=== PATIENT | female | born 1990 ===

== ENCOUNTER 2016-06-07 01:52 | Inpatient (IN) | payer OTHER ==
[~2016-06-07] VITALS: Ht 157.5 cm; Wt 85.3 kg
[2016-06-07 02:44] VITALS: BP 123/81
[2016-06-07 03:23] LABS: ABSOLUTE BASOPHIL COUNT 0 /CUMM (0.0-0.2); ABSOLUTE EOSINOPHIL COUNT 0.3 /CUMM (0.0-0.7); ABSOLUTE GRANULOCYTE CT 11.8 /CUMM (1.4-6.5); ABSOLUTE LYMPH COUNT 2.4 /CUMM (1.2-3.4); ABSOLUTE MONOCYTE COUNT 1.1 /CUMM (0.10-0.60); BASOPHIL % 0.2 % (0.0-2.0); EOSINOPHIL % 2.1 % (0-5); GRANULOCYTE % 75.2 % (42.2-75.2); HEMATOCRIT 36.6 % (37-47); MEAN CORPUSCULAR HGB 21.4 PG (27.0-31.0); MEAN CORPUSCULAR HGB CONC 31.4 G/DL (33.0-37.0); MEAN CORPUSCULAR VOLUME 68.3 FL (81.0-99.0); MEAN PLATELET VOLUME 8.9 FL (7.4-10.4); PLATELET COUNT 124 /CUMM (130-400); RBC DISTRIBUTION WIDTH 16.7 % (11.5-14.5); RED BLOOD CELL CT 5.36 /CUMM (4.20-5.40); WHITE BLOOD CELL COUNT 15.7 /CUMM (4.8-10.8)
--- NOTE | 2016-06-07 04:39 | History & Physical ---
General Information and HPI MD Statement: I have seen and personally examined MADHAVI HYMAN and documented this H&P. Source of Information: patient, family, old records History of Present Illness: The patient is a 26 year old female at [40] weeks and [1] days gestation who presented with a chief complaint of [contractions]. Patient called previously and was told to come to hospital for evaluation. Complaining of contraction Q5- 10 minutes for the past few hours. Denies any LOF or VB. Good FM Of note, patient was a Late transfer of care at ~22wga from [facility]. This IUP has been complicated by diet controlled GDM. Last finger stick was a few days ago and was "normal". 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 Denies all others. Exam & Diagnostic Data Last 24 Hrs of Vital Signs/I&O Vital Signs Date Time Temp Pulse Resp B/P Pulse O2 O2 Flow FiO2 Ox Delivery Rate 06/07 0244 123/81 Intake & Output 06/07 0800 06/07 0000 06/06 1600 Intake Total Output Total Balance Patient 85.275 kg Weight Obstetric Exam Wgt Gained During : 45 Pelvimetry: pending Dilation (cm): 4 Effacement (%): 100 Station: -2 Membranes: intact Fluid: unknown Fundal Height (cm): 40 Multiple Gestation? No Contractions: Q 4 min Infant #1 - FHR Baseline: 135 Category: 1 Estimated Weight: 8lbs Presentation: cephalic per alfredo and vaginal check Patient for Induction? No (pending reassessment) Gillette Score Gillette Score Response Value Cervix Position: mid-position 1 Cervix Consistency: soft 2 Cervix Effacement: >80% 3 Cervix Dilation: 1-2 cm 1 Cervix Station: -2 1 Total 8 Physical Exam: Gen: In obvious discomfort with contractions Heart: RRR S1 and S2 Lungs: CTAB Abd: Gravid and non tender Labs Blood Type & Rh: O+ Antibody Screen: neg Hct/Hgb & Platelets #1: 36.5/11.9/169 Hct/Hgb & Platelets #2: unk Rubella: I VDRL #1: NR VDRL #2: NR HbsAg: NR HIV #1: NR HIV #2 NR 1 Hr P 3 Hr P/169/112 Group B Strep: neg Initial Ultrasound: Late transfer of care at 22 weeks Anatomy Ultrasound: performed on 02/03/17, no report available Genetic Testing: LTOC at 22wga Last 24 Hrs of Labs/Chris: Laboratory Tests 06/07/16 0305: Hemoglobin A1c Pending, CBC w Diff NO MAN DIFF REQ, RBC 5.36, MCV 68.3 L, MCH 21.4 L, RDW 16.7 H, MPV 8.9, Gran % 75.2, Lymphocytes % 15.4 L, Monocytes % 7.1, Eosinophils % 2.1, Basophils % 0.2, Absolute Granulocytes 11.8 H, Absolute Lymphocytes 2.4, Absolute Monocytes 1.1 H, Absolute Eosinophils 0.3, Absolute Basophils 0, PUBS MCHC 31.4 L 06/07/16 0300: Urine Color STRAW, Urine Clarity CLEAR, Urine pH 6.5, Ur Specific [place] 1.010, Urine Protein NEG, Urine Ketones NEG, Urine Nitrite NEG, Urine Bilirubin NEG, Urine Urobilinogen 0.2, Ur Leukocyte Esterase NEG, Ur Microscopic SEDIMENT EXAMINED, Urine RBC RARE, Urine WBC 1-3 H, Ur Epithelial Cells FEW, Urine Bacteria RARE H, Urine Hemoglobin TRACE-INTACT, Urine Glucose NEG Assessment/Plan Assessment/Plan: 26 yo at 40w1d who presents in early labor. Patient was found to be 4 cm in clinic about 1 month prior and presents today with increasing contraction intensity and frequency. However given no effacement in prior notes and 100% today, will plan to admit for labor. Epidural as needed (patient requesting) Will plan for augmentation if no progress made at next check GDM Initial finger stick of 82 Will repeat again in 3 hours and maintain normoglycemic Monitor Q 4hrs if normal Gest Thrombocytopenia 124 on labs today No further treatment at this time. Continue to monitor As Ranked By This Provider Problem List: 1. 2. Gestational diabetes 3. Thrombocytopenia affecting Core Measures/Miscellaneous Venous Thromboembolism VTE Risk Factors: / VTE Contraindications: No Contraindications VTE Diagnosis: No Beta Christine Is Beta Christine a Home Med? No Antibiotics Is Patient on Antibiotics? No Attending MD Review Statement Attending Statement Attending MD Statement: examined this patient, discussed with family, reviewed EMR data (avail), discussed w/nursing
--- NOTE | 2016-06-07 09:34 | PN- Obstetrical ---
Subjective Subjective: Patient complaining of pain with each contraction despite being post epidural placement. Denies any other symptoms at this time. Objective Last 24 Hrs of Vital Signs/I&O see flow sheet (WNL) Physical Exam: FHTs:150/mod juaquin/+accels/occasional early vs variable decelerations. Obstetric Exam Dilation (cm): 6 Effacement (%): 10 Station: -1 Membranes: intact Fluid: clear Multiple Gestation? No Contractions: Q3-4 min #1 - FHR Baseline: 150 Category: 1 Estimated Weight: 8lbs Presentation: cephalic per alfredo and vaginal check Assessment/Plan Assessment/Plan Continue current expectant management. Anticipate vaginal delivery Patient ok to obtain epidural rebolus for pain management Will consider AROM at next check. Attending MD Review Statement Attending Statement Attending MD Statement: examined this patient, discussed with nursing
--- NOTE | 2016-06-07 10:03 | PN- Obstetrical ---
Subjective Subjective: Back pain with contractions. No urge to push yet. abdominal pain with contractions now resolved with rebolus of epidural. Objective Last 24 Hrs of Vital Signs/I&O Vital Signs Date Time Temp Pulse Resp B/P Pulse O2 O2 Flow FiO2 Ox Delivery Rate 0946 119/79 Intake & Output 06/07 1600 06/07 0800 04 0000 Intake Total Output Total Balance Patient 85.275 kg Weight Physical Exam: Somewhat uncomfortable with contractions. FHTs: 145/mod juaquin/+accels/occasional variable decels. Cat 2 and reassuring. Obstetric Exam Dilation (cm): 7 Effacement (%): 100 Station: -1 Membranes: AROM (clear) Fluid: clear Multiple Gestation? No Contractions: Q3-4 min Infant #1 - FHR Baseline: 145 Category: 1 Estimated Weight: 8lbs Presentation: cephalic per alfredo and vaginal check Assessment/Plan Assessment/Plan AROM with clear fluidat this check. Will continue to monitor vitals closely. Consider pitocin if no change at next check.
--- NOTE | 2016-06-07 11:46 | PN- Obstetrical ---
Subjective Subjective: Patient complaining of strong back pain with every contraction. In addition, now starting to feel increased abdominal pain as well. Objective Last 24 Hrs of Vital Signs/I&O Intake & Output 06/07 1600 06/07 0800 06/07 0000 Intake Total Output Total Balance Patient 85.275 kg Weight Obstetric Exam Dilation (cm): 8 Effacement (%): 10 Station: -1 Membranes: AROM Fluid: clear Multiple Gestation? No Contractions: Q3 min #1 - FHR Baseline: 150 Category: 1 Estimated Weight: 8lbs Presentation: cephalic per alfredo and vaginal check Current Medications: Current Medications Sig/Jeffry Start time Last Medication Dose Route Stop Time Status Admin Butorphanol Tartrate 1 MG Q4P PRN 06/07 0245 AC 06/07 IV 1048 Butorphanol Tartrate 1 MG Q4P PRN 06/07 0245 AC 06/07 IM 0404 Lactated Ringer's 1,000 ML Q8H 06/07 0245 AC 06/07 IV 1137 Assessment/Plan Assessment/Plan Called anesthesia to attempt to rebolus once again as patient is requiring increased epidural boluses. Difficult to manage her back pain during labor as epidural does not often work for this sort of pain. Attempted 1mg of stadol with minimal to no relief. Suspect head position may be culprit. Will attempt to sit straight up with constant position changes to attempt to maneuver head and decreased back pain. Unable to give more IV medication at this time given proximity of delivery. Continue to monitor closely.
--- NOTE | 2016-06-07 14:49 | PN- Obstetrical ---
Subjective Subjective: Patient feeling more comfortable with pain control. Minimal pain with contractions. Objective Last 24 Hrs of Vital Signs/I&O Vital Signs Date Time Temp Pulse Resp B/P Pulse O2 O2 Flow FiO2 Ox Delivery Rate 06/07 0244 99.1 70-110 139/75 Obstetric Exam Dilation (cm): 8 Effacement (%): 100 Station: -1 Membranes: AROM Fluid: clear Multiple Gestation? No Contractions: Q 3-4 min Infant #1 - FHR Baseline: 160 (min-mod juaquin/+accels/occ early) Category: 1 Estimated Weight: 8lbs Presentation: cephalic per alfredo and vaginal check Assessment/Plan Assessment/Plan Patient's pain improved Patient is currently off the labor curve as she has been unchanged for just about 3 hours. Slight swelling of anterior lip was noted. Infant has not descended further. tachycardia noted and patient did have a temp of 100.2 prior to this last one. Will recheck at 330p to assess for change. Attending MD Review Statement Attending Statement Attending MD Statement: examined this patient, discussed with family, discussed with nursing
--- NOTE | 2016-06-07 16:11 | PN- Obstetrical ---
Subjective Subjective: Patient in increasing amount of pain and requesting . she describes that the pain is the reason she is requesting . Objective Last 24 Hrs of Vital Signs/I&O Vital Signs Date Time Temp Pulse Resp B/P Pulse O2 O2 Flow FiO2 Ox Delivery Rate 06/07 0244 82 132/68 100 Physical Exam: Decel noted down to the 90s for 2-3 min with recovery. ISE placed at that time. Obstetric Exam Dilation (cm): 9 Effacement (%): 10 Station: -1 Membranes: AROM Fluid: clear Multiple Gestation? No Contractions: Q2-3 min Infant #1 - FHR Baseline: 160 (min-mod juaquin/+accels/occ early) Category: 2 Estimated Weight: 8lbs Presentation: cephalic per alfredo and vaginal check Assessment/Plan Assessment/Plan Spoke to patient through rough rice tender line (#[id number]). Patient was informed of current situation with labor curve and minimal change. She is more concerned about getting pain control. If we are able to get adequate pain control, she is ok with continuing labor. However, given her minimal changes, will keep close monitoring for status. Patient was also informed of possibility of given her current labor curve and tachycardia (though overall reassuring). Will recheck in 2 hours and determine if change has occured. ISE was placed at this time given decel seen on monitor. IUPC had been previously placed and pitocin had been started as contractions were not adequate.
--- NOTE | 2016-06-07 18:11 | PN- Obstetrical ---
Subjective Subjective: Patient very comfortable with new epidural in place. No complaints at this time. Objective Last 24 Hrs of Vital Signs/I&O Vital Signs Date Time Temp Pulse Resp B/P Pulse O2 O2 Flow FiO2 Ox Delivery Rate 06/07 0244 100.9 90-110 115/65 100 Obstetric Exam Dilation (cm): 10 Effacement (%): 100 Station: -1 Membranes: AROM Fluid: clear Multiple Gestation? No Contractions: Q2-3 min #1 - FHR Baseline: 165 (mod juaquin/+accel/occ juaquin & early) Category: 2 Estimated Weight: 8lbs Presentation: cephalic per alfredo and vaginal check Assessment/Plan Assessment/Plan Patient now complete. Will allow to labor down Continue pitocin per protocol Patient comfortable with ew epidural in place Will plan to start Amp/Gent for suspicion of chorio (maternal and tachycardia + fever) Close monitoring. Attending MD Review Statement Attending Statement Attending MD Statement: examined this patient, discussed with family, discussed with nursing
--- NOTE | 2016-06-07 20:37 | PN- Obstetrical ---
Subjective Subjective: Patient has been pushing for 1.5 hours. Feeling increased amount of pain. Asking for a . Does not want to continue pushing any longer. Objective Last 24 Hrs of Vital Signs/I&O Vital Signs Date Time Temp Pulse Resp B/P Pulse O2 O2 Flow FiO2 Ox Delivery Rate 06/07 1913 101.1 Obstetric Exam Dilation (cm): 10 Effacement (%): 100 Station: 0 Membranes: AROM Fluid: clear Multiple Gestation? No Contractions: Q3-4 min Infant #1 - FHR Baseline: 170 (mod juaquin/+accel/early decels) Category: 2 Estimated Weight: 8lbs Presentation: cephalic per alfredo and vaginal check Assessment/Plan Assessment/Plan Patient has been pushing for 1.5 hours with no real change in station. Caput is noted +1, however head remains overall unchanged. There is poor maternal effort with each push and despite intensive coaching, there is still no change. She was comfortable with her epidural, but now feeling more pain. Patient does not desire to push any longer and is asking for a . We offered patient to turn off epidural and attempt to repush as this may improve her effort. I used sales support specialist (#[id number]) to chief counsel patient extensively. Patient was told about possible increased risk with after pushing for so long, including increase risk of extensions and atony leading to hemorrhage and possible need for hysterectomy if unable to control. She was also counseled about future risk of possible repeat or increased risk of TOLAC. She was also counseled on overall abdominal surgery complications. Patient voiced understanding of all these risks and has decided to proceed with . Arrest of descent, heart tones overall stable, though continues to be tachycardic and variability is slightly decreased compared to prior. Chorio was previously diagnosed and now s/p Abx and tylenol. Will plan to stop pitocin, Alert anesthesia and call in help. Kefzol 2g prior to incision Will need vaginal hand intraop to help with head delivery. Attending MD Review Statement Attending Statement Attending MD Statement: examined this patient, discussed with family, discussed with nursing
--- NOTE | 2016-06-07 23:35 | Operative Report ---
Operative/Inv Procedure Report Surgery Date: 06/07/16 Name of Procedure: section Pre-Operative Diagnosis: IUP at 40 weeks and 1 day Gestational diabetes Arrest of descent Chorioamnionitis Post-Operative Diagnosis: Same as preoperative diagnosis Status post low transverse section Estimated Blood Loss: 700 mL Surgeon/Sand Mill Operator Core Sand: MD Yoandy Kennedy MD Anesthesia: block (epidural) IV Fluids: 1600cc Urine Output: 100cc Specimens: Placenta sent to pathology for cultures Complications: None Condition: stable Operative Indication: This is a 26-year-old female patient who presented in active labor she progressed to complete and after 1-1/2 hours of pushing, did not move from 0 station. After extensive counseling with mother, patient decided that she would prefer a section and refused to continue pushing at this time. Clinical chorioamnionitis was diagnosed during labor. tachycardia was noted for the last few hours of labor. Operative/Procedure Note Note: After patient was consented extensively regarding the risks of proceeding with the section the patient was brought to the operating room where an epidural level was obtained. Patient was prepped and draped in normal sterile fashion in a supine position with leftward tilt. Timeout was obtained. Allis test was performed and was negative. Pfannenstiel skin incision was performed using a scalpel. The underlying subcutaneous tissue was further divided using Bovie cautery. We reached the fascia with blunt dissection as well. The fascia was next in the midline with the Bovie cautery. Using curved Parker scissors, the fascia was incised on either side. Using Kochers, the fascia was grasped superiorly and the underlying rectus muscle was from the fascia using a combination of curved Parker scissors and blunt dissection. In a similar fashion the the lower aspect of the fascia was grasped with clamps and the underlying rectus muscle dissected off using a combination of Parker scissors as well as blunt dissection. The muscle was in the midline the peritoneum was identified. Was then entered bluntly and the incision was extended bluntly as well. The uterus was identified and the lower uterine segment was also noted and identified. The bladder flap was created using Metzenbaum scissors. The bladder blade was placed to retract the bladder down. The lower uterine segment was again identified and using a scalpel a uterine incision was made in the midline in a smiling fashion. The uterine cavity was entered and the incision the hysterotomy incision was extended bluntly. Upon entry to the uterine cavity was immediately noted cloudy murky fluid. The infant was noted to be in cephalic LOP position. The head was brought to the hysterotomy incision gently and the infant was sooner delivered thereafter. The cord was clamped and the was passed over to the awaiting nurses. A segment of the cord was obtained and sent for gases. Sent was then removed spontaneously the uterus was then exteriorized and cleaned of all clot and debris. The hysterotomy incision was identified and grasped using 3 Lindo' s at the angles. Hysterotomy was then reapproximated using 0 chromic suture in a running locked fashion. A small extension of the uterine incision was noted on the right side of the hysterotomy this was closed in the same fashion. At this time it was noted that the uterus was a little boggy and 10 units of pit were injected directly into the hysterotomy in addition Methergine was given IM and 800 g Cytotec was given by mouth. The uterine tone was noted to be good at this time. A second layer of 0 chromic suture in running fashion was placed to imbricate the first layer. An extra [id number] Vicryl was placed at the left angle for good hemostasis. Section of the incision revealed good hemostasis overall. The posterior aspect of the uterus was irrigated and suctioned. The uterus was then replaced into the abdomen and the hysterotomy was once again inspected and noted be hemostatic. The muscle was reapproximated with a single 0 chromic mattress suture. The muscle was inspected throughout and noted be hemostatic. Fascia was then reapproximated using 0 Vicryl in a running fashion. The subcutaneous tissue was thoroughly irrigated and all bleeders were cauterized with Bovie. The subcutaneous tissue was reapproximated using 20 plain gut in a running fashion. A 4-0 suture on Chucho needle was used to reapproximate the incision. Steri-Strips are placed onto the incision. A pressure dressing was placed over this. All instrument, lap and needle counts were good x 2 Patient was placed onto her stretcher and taken back to her room to recover, she was in a stable condition Findings: Normal uterus, tubes and ovaries. Large female in cephalic LOP presentation. Cloudy amniotic fluid upon entry to the uterus. CC: BABAK PARHAM,PIETER Lay
--- NOTE | 2016-06-08 08:24 | PN- Post Delivery/GYN ---
Subjective Subjective: NO COMPLAINTS Objective Last 24 Hrs of Vital Signs/I&O Vital Signs Date Time Temp Pulse Resp B/P Pulse O2 O2 Flow FiO2 Ox Delivery Rate 06/08 699 98.6 06/08 0245 102.5 06/08 0130 103.1 06/07 1914 101.1 Physical Exam: TEMP98 NOW ON TRIPLE ABX ABD SOFT INCISION CDI FUNDUS TENDER EXT -EDEMA-HOMANS Assessment/Plan Assessment/Plan ASSESS S/PC/S PLAN CONT ABX
[2016-06-09] MEDS ORDERED: DOCUSATE SODIU100 M3 PO (09:22)
[2016-06-09] MEDS ORDERED: PERCOCET 5-3251 EACH PO (09:22)
[2016-06-09] MEDS ORDERED: IBUPROFEN800 M1 PO (09:23)
--- NOTE | 2016-07-09 12:10 | Surgical Discharge Summary ---
Visit Information Visit Dates Admission Date: 06/07/16 Discharge Date: 06/09/16 History of Present Illness Chief Complaint: Labor Medical History Isolation History: Standard Surgical History Pertinent Surgical History: none Psychosocial History What is Your Primary Language? [facility] Review of Systems: -13 point review of systems as stated in the HPI Hospital Course Course Attending Physician: BABAK PARHAM,PIETER Lay Primary Care Physician: PATIENT HAS NO PRIMARY CARE DR Hospital Course: Patient was admitted in labor she progressed to 6 cm at which point the patient had no further I dilatation on she had nonreassuring heart tracing and rising temperature I she was given a primary low flap transverse section on the was transferred TL secondary to blood sugars at the hospital staff could not maintained on mom had temperatures of 104 she was started on triple antibiotics on her placenta was sent to pathology was negative for on [place] demonstrated Hernandez sinus and some fungal or concerns but otherwise was normal discharged home on the second postoperative day the following physical exam she's a pleasant on thefemale HEENT anicteric lungs clear heart S1 and S2 abdomen soft uterus nontender incision clean dry and intact 70s negative edema negative Homans Allergies: Coded Allergies: No Known Allergies (06/07/16) Disposition Summary Disposition Principal Diagnosis: Status post primary low flap transverse section Additional Diagnosis: Dimitriadis Discharge Disposition: home or self care Discharge Instructions General Discharge Information Code Status: Full Code Patient's Diet: Regular Patient's Activity: Pelvic rest no heavy lifting greater than 15 pounds Follow-Up Instructions/Appts: Tables be removed by return nurses as well as the follow-up in my office in 2 weeks check the incision Medications at Discharge Discharge Medications: Start taking the following new medications: Oxycodone HCl/Acetaminophen (Percocet 5-325 MG Tablet) 5 MG-325 MG TABLET 1 Tablet ORAL EVERY 4 HOURS NEEDED as needed for PAIN SCALE 7-10 (SEVERE) Qty = 30 No Refills Comments: Last Taken:06/09/16 Time:822 Docusate Sodium (Docusate Sodium) 100 MG CAPSULE 100 Milligram ORAL AT BEDTIME as needed for STOOL SOFTENER Qty = 30 No Refills Ibuprofen (Ibuprofen) 800 MG TABLET 800 Milligram ORAL EVERY SIX HOURS NEEDED as needed for PAIN SCALE 4-6 ( MODERATE) Qty = 30 No Refills Comments: Last Taken:06/09/16 Time:07
== END 2016-06-09 11:03 | DRG 540 ==
LOC: CBCO 01:52 → GNO 02:40
PROVIDERS: Obstetrics & Gynecology; ADMIT Specialist
PROC: 10D00Z1 Extraction of Products of Conception, Low, Open Approach (ICD-10-PCS; principal; 2016-06-07)
DX: O76 Abnormality in fetal heart rate and rhythm complicating labor and delivery (principal); O99.12 Other diseases of the blood and blood-forming organs and certain disorders involving the immune mechanism complicating childbirth; O24.420 Gestational diabetes mellitus in childbirth, diet controlled; O62.1 Secondary uterine inertia; Z3A.40 40 weeks gestation of pregnancy; Z37.0 Single live birth; O41.1230 Chorioamnionitis, third trimester, not applicable or unspecified
CPT/HCPCS: 87070; GNOP; GNOS; 36415; 81001; 87086; 88307; G0463; J0131; J0290; J0690; J1580; J1650; J1885; J7120